=== PATIENT | female | born 1995 | race Hispanic/Latino ===

== ENCOUNTER 2017-03-23 10:11 | Emergency (ER) | payer OTHER, SELFPAY ==
--- NOTE | 2017-03-23 10:55 | RAD ---
RIGHT ANKLE 3 VIEWS: Date: 03/23/17 HISTORY: Trauma. Injury. COMPARISON: None. FINDINGS: Large volume lateral malleolar soft tissue edema. No displaced fracture or malalignment. Moderate siz e joint effusion of the ankle. IMPRESSION: 1. No acute fracture or malalignment. 2. Severe lateral malleolar edema suggesting lateral ligamentous complex injury. POS: [facility]
[2017-03-23] MEDS ORDERED: Ibuprofen 800 MG TAB ONE (11:28)
== END 2017-03-23 13:16 | disposition home or self-care (01) ==
LOC: ERS 10:11
DX: S93.401A Sprain of unspecified ligament of right ankle, initial encounter (principal); F17.210 Nicotine dependence, cigarettes, uncomplicated; W17.2XXA Fall into hole, initial encounter